=== PATIENT | male | born 1955 | race Asian ===

== ENCOUNTER 2019-06-17 10:34 | Inpatient (IN) | payer OTHER, MEDICARE ==
[~2019-06-17] VITALS: Ht 172.7 cm; Wt 73.5 kg
[2019-06-17 10:41] VITALS: Ht 172.7 cm; Wt 73.5 kg
--- NOTE | 2019-06-17 10:51 | NUR ---
BROUGHT IN BY AMBULANCE, AWAKE ALERT ORIENTED, STATED SINCE 2 DAYS HAS BEEN HAVING CHEST PAIN ON AND OFFWITH SOB,
[2019-06-17 11:29] LABS: BASOPHIL % 0.2 % (0-2); PLATELET COUNT 225 x10^3mcL (130-400); RED CELL DISTRIBUTION WIDTH 13.1 % (11.5-14.5)
[2019-06-17 11:33] LABS: CALCIUM 8.5 mg/dL (8.5-10.1); CARBON DIOXIDE 27.1 mmol/L (21-32); CREATININE SERUM 1.3 mg/dL (0.7-1.3); POTASSIUM SERUM 4.3 mmol/L (3.5-5.1)
[2019-06-17 11:37] LABS: ALBUMIN 3.8 g/dL (3.4-5.0); BILIRUBIN TOTAL 0.87 mg/dL (0.20-1.00); TOTAL PROTEIN, SERUM 6.8 g/dL (6.4-8.2)
[2019-06-17] MEDS ORDERED: NEU300 PO (12:20)
[2019-06-17] MEDS ORDERED: METFORMIN HYDR500 M1 PO (12:20)
[2019-06-17] MEDS ORDERED: FLO4 PO (12:21)
[2019-06-17] MEDS ORDERED: SELEGILINE HCL5 M2 PO (12:21)
[2019-06-17] MEDS ORDERED: KLONOPIN1 MG PO (12:22)
[2019-06-17] MEDS ORDERED: CYMBALTA60 M1 PO (12:23)
[2019-06-17] MEDS ORDERED: NOR5 PO (12:24)
[2019-06-17] MEDS ORDERED: SINEMET 25-1001 TAB PO (12:25)
[2019-06-17] MEDS ORDERED: NITROSTAT0.4 MG SL (12:26)
[2019-06-17] MEDS ORDERED: LIPI10 PO (12:26)
--- NOTE | 2019-06-17 12:27 | NUR ---
STATES FEELS MUCH BETTER, MORE AWAKE AND ALERT, BESIDES BED, MINIMAL CHEST DISCOMFORT,PRESS HELPER IN SR NO ECTOPY
--- NOTE | 2019-06-17 13:15 | NUR ---
RESIDENT AT BEDSIDE.
[2019-06-17 13:23] LABS: PHOSPHOROUS 3.3 mg/dL (2.5-4.9)
[2019-06-17 13:25] LABS: CHOLESTEROL/HDL RATIO 2.9
--- NOTE | 2019-06-17 13:26 | NUR ---
PT AWAKE, ALERT, AAOX4, VERBALIZED UNDERSTANDING FOR CONTINUATION OF CARE.
[2019-06-17 13:33] LABS: T3 TOTAL 0.99 ng/mL
--- NOTE | 2019-06-17 13:33 | NUR ---
PT'S INQUIRING ABOUT PT TAKING HIS DAILY HOME MEDICATIONS. PER MAGDIEL SAEZ FOR PT TO TAKE HIS DAILY MEDS. PT TAKING PO CYMBALTA, PO AMLODIPINE, AND PO CARVIDOPA. PT GIVEN WATER, SITTING UP IN [facility] TO TAKE HIS MEDICATIONS. ASSISTING PT.
[2019-06-17 13:34] LABS: FREE T4 0.97 ng/dL (0.76-1.46); FREE THYROXINE INDEX 2.7 ug/dL (1.4-4.5); T4(THYROXINE) 8.3 ug/dL (4.7-13.3)
--- NOTE | 2019-06-17 13:37 | NUR ---
REPORT CALLED TO PHYSICIAN ASSISTANT PSYCHIATRYVERONIQUE GUALLPA TO ASSUME CARE FOR PT. VERONIQUE GUALLPA STATES PT IS NOT IN SYSTEM AND CANNOT GO UP UNTIL PT IS IN THE SYSTEM. WILL RESOLVE.
--- NOTE | 2019-06-17 13:53 | NUR ---
SPOKE TO VERONIQUE GUALLPA. PER SALONI, OKAY TO BRING PT UP, PT IN THEIR SYSTEM NOW.
--- NOTE | 2019-06-17 14:41 | NUR ---
PT TRANSFERRED TO TELE FLOOR, VERBALIZED UNDERSTANDING OF CONTINUATION OF CARE. ACCOMPANIED BY RN MELQUIADES Liz AND EMT CHARIS. NAD NOTED.
--- NOTE | 2019-06-17 14:45 | NUR ---
RECEIVED PT VIA AnagoRNEY FROM E/D, ACCOMPANIED BY RN, TRANSPORTER, AND PT'S , ARNOLD BAEZ. PT A/A/O X 4, CALM, COOPERATIVE, SLOW SPEECH; C/O INTERMITTENT THROBBING H/A 2/10. ON TELE # 30, SR + OCCASIONAL PVC'S, HR 73, C/O INTERMITTENT CHEST TIGHTNESS 2/10, RELIEVED MODERATELY BY PAIN MEDICATION. SCD BY BEDSIDE. LUNGS CTAB, CHEST RISING EVENLY, 2LNC, 97%, SOB ON EXERTION. GENERALIZED WEAKNESS, ABLE TO AMBULATE W/ ASSIST, SLOW STEADY GAIT, USES WALKER @ HOME; NOTED WEAK HAND INSURANCE OPERATIONS REP; FALL RISK PROTOCOL IN PLACE. IV SITE LAC 18, CDI. ORIENTED PT AND TO ROOM, BED CONTROLS, CALL LIGHT SYSTEM. SIDE RAILS UP X 2, BED IN LOW POSITION. WILL CONTINUE TO MONITOR.
[2019-06-17 15:23] VITALS: BP 139/72
[2019-06-17 16:40] VITALS: BP 113/69
--- NOTE | 2019-06-17 17:00 | NUR ---
RELAYED TO DR CARTAGENA THAT PT TAKES 2 TABS SINEMET 25/100 TID; PT CURRENTLY ON 1 TAB TID; WILL CHANGE ORDER; WILL RELAY TO VERONIQUE STONE.
--- NOTE | 2019-06-17 18:41 | NUR ---
DENIED CHESET PAIN NOW. TOLERATED DINNER. IVF OF NS 100CC/HR. VOID 200 CC URINE VIA URINAL. ENDORSED CARE TO [facility] NURSE.
--- NOTE | 2019-06-17 19:15 | NUR ---
RECEIVED PT IN BED RESTING. BREATHING EVEN AND UNLABORED. DENIES ANY CP OR PRESSURE AT THIS TIME. IV SITE PATENT AND INTACT. SKIN ARE INTACT AND DRY.USES URINAL. BED IN LOWEST POSITION,CALL LIGHT WITHIN REACH. WILL CONTINUE TO MONITOR.
[2019-06-17 22:00] VITALS: BP 133/75
[2019-06-18 04:02] LABS: microscopic required? NO
[2019-06-18 04:06] LABS: UA SPECIFIC GRAVITY 1.015 (1.005-1.035); urine erythrocyte NEGATIVE (NEGATIVE)
[2019-06-18 04:15] LABS: AMPHETAMINE QUAL UR NONE DETECTED (See below)
--- NOTE | 2019-06-18 05:04 | NUR ---
PT REMAINED ASLEEP. NO ACUTE RESPIRATORY DISTRESS NOTED. NO INDICATION OF PAIN. BED IN LOWEST POSITION,CALL LIGHT WITHIN REACH. WILL CONTINUE TO MONITOR.
[2019-06-18 05:48] VITALS: BP 117/77
--- NOTE | 2019-06-18 07:27 | NUR ---
CARE ENDORSED TO DAY NURSE SUSHANT.
[2019-06-18 08:53] LABS: BASOPHIL % 0.4 % (0-2); PLATELET COUNT 234 x10^3mcL (130-400); RED CELL DISTRIBUTION WIDTH 12.9 % (11.5-14.5)
[2019-06-18 09:13] VITALS: BP 125/73
[2019-06-18 09:19] LABS: CALCIUM 8.3 mg/dL (8.5-10.1); CARBON DIOXIDE 28.4 mmol/L (21-32); CHLORIDE SERUM 103 mmol/L (98-107); CREATININE SERUM 1.1 mg/dL (0.7-1.3); GFR1 > 60 mL/min; GLUCOSE SERUM 247 mg/dL (74-106); POTASSIUM SERUM 4.2 mmol/L (3.5-5.1); SODIUM SERUM 140 mmol/L (136-145)
--- NOTE | 2019-06-18 09:35 | NUR ---
ROUTINE MEDS GIVEN AND TOLERATED WELL. BP 125/73, HR 63. PT DENIES C/P, PRESSURE AND PALPITATION. VISITING AT BEDSIDE. CALL LIGHT WITHIN REACH.
--- NOTE | 2019-06-18 11:01 | NUR ---
PT IS AAOX4. TELE [address] READING NSR. IVF RUNNING TO LAC. SITE WNL. PT DENIES C/P, PRESSURE AND PALPITIONS AT THIS TIME. AT BESIDE. CALL LIGHT WITHIN REACH. FALL PROTOCOL MAINTAINED. BED IN LOWEST POSTION.
--- NOTE | 2019-06-18 11:30 | NUR ---
PT ASKING WHEN HE CAN DISCHARGE. PT TOLD SOON DISCHARGE ORDER IS PLACED HE WILL MADE AWARE. PT SHOULD BE ABLE TO LEAVE HOSPITAL BEFORE 2PM. PT AGREED WITH POC. PT DENIES PAIN AND DISCOMFORT AT THIS TIME. CALL LIGHT WITHIN REACH.
[2019-06-18 12:30] VITALS: BP 125/73
--- NOTE | 2019-06-18 13:00 | NUR ---
PT DISCHARGED TO HOME IN NO DISTRESS. DISCHARGE INSTRUCTIONS REVIEWED, ALL QUESTIONS ANSWERED. ALL FORMS SIGNED AND PLACED IN PT'S CHART. TELE 30 REMOVED AND RETURNED TO STILL OPERATOR HELPER. IV CATH REMOVED FROM LAC, SITE WNL. COVERED WITH GAUZE AND BANDAID. VS; T 98.8F, HR 63, RR 16, B/P 125/73, O2 SAT 98%. PT DENIES PAIN UPON DISCHARGE. ALL PERSONAL BELONGINGS TAKEN HOME WITH PT.
--- NOTE | 2019-06-18 15:09 | NUR ---
ECHO NOT DONE-DISCHARGED
== END 2019-06-18 13:09 | disposition home or self-care (01) | DRG 198 ==
LOC: EDBD 10:34 → ED 10:34 → DU 12:59
PROVIDERS: Emergency Medicine; ADMIT Family Medicine
DX: R07.89 Other chest pain (principal); I25.110 Atherosclerotic heart disease of native coronary artery with unstable angina pectoris; G20 Parkinson's disease; E11.65 Type 2 diabetes mellitus with hyperglycemia; F41.8 Other specified anxiety disorders; F41.0 Panic disorder [episodic paroxysmal anxiety]; I10 Essential (primary) hypertension; F32.9 Major depressive disorder, single episode, unspecified; E78.5 Hyperlipidemia, unspecified; Z68.24 Body mass index [BMI] 24.0-24.9, adult; Z79.84 Long term (current) use of oral hypoglycemic drugs; Z79.899 Other long term (current) drug therapy; Z88.2 Allergy status to sulfonamides; Z79.82 Long term (current) use of aspirin
CPT/HCPCS: 82962; 83880; 84439; G0378; J2270; J2405; J7030; Q0092

== ENCOUNTER 2019-09-23 00:30 | Inpatient (IN) | payer MEDICAID, MEDICARE, OTHER ==
[~2019-09-23] VITALS: Ht 170.2 cm; Wt 75.6 kg
[~2019-09-23 00:30] MED LIST: CYMBALTA60 M1 PO; FLO4 PO; KLONOPIN1 MG PO; LIPI10 PO; METFORMIN HYDR500 M1 PO; NEU300 PO; NITROSTAT0.4 MG SL; NOR5 PO; SELEGILINE HCL5 M2 PO; SINEMET 25-1001 TAB PO
[2019-09-23 02:05] LABS: BASOPHIL % 0.2 % (0-2); PLATELET COUNT 229 x10^3mcL (130-400); RED CELL DISTRIBUTION WIDTH 13.1 % (11.5-14.5)
[2019-09-23 02:13] LABS: ALBUMIN 3.7 g/dL (3.4-5.0); ALKALINE PHOSPHATASE 111 U/L (46-116); ALT/SGPT 24 U/L (16-63); AST/SGOT 19 U/L (15-37); BILIRUBIN TOTAL 0.48 mg/dL (0.20-1.00); CALCIUM 8.5 mg/dL (8.5-10.1); CARBON DIOXIDE 28.6 mmol/L (21-32); CHLORIDE SERUM 100 mmol/L (98-107); CREATININE SERUM 1.1 mg/dL (0.7-1.3); GFR1 > 60 mL/min; GLUCOSE SERUM 177 mg/dL (74-106); POTASSIUM SERUM 3.8 mmol/L (3.5-5.1); SODIUM SERUM 139 mmol/L (136-145); TOTAL PROTEIN, SERUM 6.7 g/dL (6.4-8.2)
[2019-09-23] MEDS ORDERED: MIRTAZAPINE15 M2 PO (03:06)
[2019-09-23 04:38] LABS: CHOLESTEROL/HDL RATIO 4.2; PHOSPHOROUS 3.5 mg/dL (2.5-4.9)
[2019-09-23 04:47] LABS: T3 TOTAL 0.9 ng/mL
[2019-09-23 04:51] LABS: FREE T4 0.84 ng/dL (0.76-1.46); FREE THYROXINE INDEX 2.3 ug/dL (1.4-4.5); T4(THYROXINE) 6.9 ug/dL (4.7-13.3)
[2019-09-23 08:50] VITALS: BP 103/68
[2019-09-23 11:08] LABS: CALCIUM 8.7 mg/dL (8.5-10.1); CARBON DIOXIDE 32.1 mmol/L (21-32); CHLORIDE SERUM 105 mmol/L (98-107); CREATININE SERUM 1.1 mg/dL (0.7-1.3); GFR1 > 60 mL/min; GLUCOSE SERUM 206 mg/dL (74-106); POTASSIUM SERUM 4.2 mmol/L (3.5-5.1); SODIUM SERUM 144 mmol/L (136-145)
[2019-09-23 11:35] LABS: BASOPHIL % 0.5 % (0-2); PLATELET COUNT 228 x10^3mcL (130-400); RED CELL DISTRIBUTION WIDTH 13.3 % (11.5-14.5)
[2019-09-23 13:16] VITALS: BP 103/68
[2019-09-23 13:25] VITALS: BP 109/72
[2019-09-23 17:38] VITALS: BP 108/71
[2019-09-23 21:11] VITALS: BP 136/75
[2019-09-23 21:43] LABS: microscopic required? NO
[2019-09-23 21:47] LABS: UA SPECIFIC GRAVITY <=1.005 (1.005-1.035); urine erythrocyte NEGATIVE (NEGATIVE)
[2019-09-24 06:10] LABS: BASOPHIL % 0.3 % (0-2); PLATELET COUNT 221 x10^3mcL (130-400); RED CELL DISTRIBUTION WIDTH 13.2 % (11.5-14.5)
[2019-09-24 06:27] VITALS: BP 145/87
[2019-09-24 06:30] LABS: CARBON DIOXIDE 27.6 mmol/L (21-32); CHLORIDE SERUM 107 mmol/L (98-107); CREATININE SERUM 0.9 mg/dL (0.7-1.3); GFR1 > 60 mL/min; GLUCOSE SERUM 101 mg/dL (74-106); POTASSIUM SERUM 3.7 mmol/L (3.5-5.1); SODIUM SERUM 143 mmol/L (136-145)
[2019-09-24 08:50] VITALS: BP 138/83
[2019-09-24 12:37] VITALS: BP 104/74
[2019-09-24 15:50] VITALS: BP 130/77
[2019-09-25 05:36] VITALS: BP 139/93
[2019-09-25 07:16] LABS: CALCIUM 9.3 mg/dL (8.5-10.1); CARBON DIOXIDE 31.4 mmol/L (21-32); CHLORIDE SERUM 105 mmol/L (98-107); CREATININE SERUM 1.1 mg/dL (0.7-1.3); GFR1 > 60 mL/min; GLUCOSE SERUM 127 mg/dL (74-106); POTASSIUM SERUM 4.6 mmol/L (3.5-5.1); SODIUM SERUM 142 mmol/L (136-145)
[2019-09-25 07:30] LABS: BASOPHIL % 0.5 % (0-2); PLATELET COUNT 243 x10^3mcL (130-400); RED CELL DISTRIBUTION WIDTH 13.2 % (11.5-14.5)
[2019-09-25 08:24] VITALS: BP 109/72
[2019-09-25] MEDS ORDERED: PROA PO (10:06)
[2019-09-25] MEDS ORDERED: BACO TOP (10:15)
[2019-09-25 13:12] VITALS: BP 109/81
[2019-09-25 16:37] VITALS: BP 146/81
[2019-09-26 13:20] VITALS: Ht 170.2 cm; Wt 75.6 kg
== END 2019-09-25 16:55 | disposition home or self-care (01) | DRG 204 ==
LOC: ED 00:30 → DU 02:48 → MU 09-24 13:00 → DU 09-24 16:53
PROVIDERS: Emergency Medicine; Internal Medicine; ADMIT Family Medicine
DX: I95.1 Orthostatic hypotension (principal); G20 Parkinson's disease; E11.65 Type 2 diabetes mellitus with hyperglycemia; I10 Essential (primary) hypertension; K59.00 Constipation, unspecified; F41.9 Anxiety disorder, unspecified; E78.5 Hyperlipidemia, unspecified; Z68.25 Body mass index [BMI] 25.0-25.9, adult; Z79.84 Long term (current) use of oral hypoglycemic drugs; Z88.2 Allergy status to sulfonamides; Z90.49 Acquired absence of other specified parts of digestive tract; Z79.899 Other long term (current) drug therapy
CPT/HCPCS: 82962; 83880; 84439; 90732; 97116-GP; 97530-GP; G0378; J7030; Q0092